=== PATIENT | male | born 1990 | race Caucasian/White ===

== ENCOUNTER 2024-08-13 18:43 | Inpatient (IN) | payer OTHER ==
[2024-08-13 19:58] LABS: Basophils # (A) 0.03 10*3/uL (0.00-0.10); Basophils % (A) 0.2 %; Eosinophils # (A) 0.46 10*3/uL (0.04-0.35); Eosinophils % (A) 3.8 %; HCT 46.5 % (39.6-50.0); HGB 15.2 g/dL (13.0-17.0); Lymphocytes # (A) 2.33 10*3/uL (0.90-5.00); Lymphocytes % (A) 19.3 %; MCH 27.9 pg (27.0-32.0); MCHC 32.7 g/dL (32.0-37.0); MCV 85.3 fL (80.0-97.0); Monocytes # (A) 0.65 10*3/uL (0.20-1.00); Monocytes % (A) 5.4 %; Neutrophils # (A) 8.55 10*3/uL (1.80-7.70); Neutrophils % (A) 70.9 %; Platelet Count 305 10*3/uL (140-440); RBC 5.45 10*6/uL (4.40-5.60); RDW 13.8 % (11.5-14.5); WBC 12.07 10*3/uL (4.50-10.00)
--- NOTE | 2024-08-13 20:05 | ED ---
General Adult HPI - General Chief complaint: Abdominal Pain Stated complaint: abd pain NVD Time Seen by Provider: 08/13/24 18:52 Source: patient, EMS, RN notes reviewed Mode of arrival: EMS Limitations: no limitations - History of Present Illness Initial comments: 34-year-old male presents to the emergency department for evaluation of left- sided abdominal pain. He notes that this started 3 days ago. Patient reports that the pain is sharp stabbing pains. He does note that he is dealing with some constipation but was recently given a laxative medication and had a bowel movement following this. He does report increased flatulence. Denies any prior abdominal surgeries. - Related Data Allergies Allergy/AdvReac Type Severity Reaction Status Date / Time No Known Allergies Allergy Verified 08/13/24 18:59 Review of Systems ROS Statement: Those systems with pertinent positive or pertinent negative responses have been documented in the HPI. ROS Other: All systems not noted in ROS Statement are negative. Past Medical History Past Medical History: Asthma, Diabetes Mellitus Additional Past Medical History / Comment(s): thyroid disease Past Surgical History: No Surgical Hx Reported Smoking Status: Current every day smoker Past Alcohol Use History: None Reported Past Drug Use History: Cocaine, Methamphetamine General Exam Limitations: no limitations General appearance: alert, in no apparent distress Head exam: Present: atraumatic, normocephalic, normal inspection Eye exam: Present: normal appearance, PERRL, EOMI. Absent: scleral icterus, conjunctival injection, periorbital swelling Course Vital Signs 08/13/24 08/13/24 18:51 22:44 Temperature 98.3 F 98.7 F Pulse Rate 71 69 Respiratory 22 18 Rate Blood Pressure 123/90 106/55 O2 Sat by Pulse 98 96 Oximetry Medical Decision Making - Medical Decision Making Was pt. sent in by a medical professional or institution (, PA, HEALTH SAFETY AND ENVIRONMENT MANAGER, urgent care, hospital, or prison...) When possible be specific @ -[No] Did you speak to anyone other than the patient for history (EMS, parent, family, police, friend...)? What history was obtained from this source @ -[No] Did you review nursing and triage notes (agree or disagree)? Why? @ -[I reviewed and agree with nursing and triage notes] Were old charts reviewed (outside hosp., previous admission, EMS record, old EKG, old radiological studies, urgent care reports/EKG's, prison records)? Report findings @ -[No old charts were reviewed] Differential Diagnosis (chest pain, altered mental status, abdominal pain women, abdominal pain men, vaginal bleeding, weakness, fever, dyspnea, syncope, headache, dizziness, GI bleed, back pain, seizure, CVA, palpatations, mental health, musculoskeletal)? @ -Differential Abdominal Pain Men: Appendicitis, cholecystitis, diverticulosis, ischemic bowel, pancreatitis, hepat itis, UTI, gastroenteritis, AAA, incarcerated hernia, bowel obstruction, constipation, inflammatory bowel, hepatitis, peptic ulcer disease, splenic infarction, perforated viscus, testicular torsion, this is not meant to be an all-inclusive list EKG interpreted by me (3pts min.). @ -None X-rays interpreted by me (1pt min.). @ -[None done] CT interpreted by me (1pt min.). @CT of the abdomen pelvis revealed fluid-filled bowel loops consistent with ileus U/S interpreted by me (1pt. min.). @ -[None done] What testing was considered but not performed or refused? (CT, X-rays, U/S, labs)? Why? @ -[None] What meds were considered but not given or refused? Why? @ -[None] Did you discuss the management of the patient with other professionals (professionals i.e. , PA, HEALTH SAFETY AND ENVIRONMENT MANAGER, lab, RT, psych nurse, manager social, brass pourer, teacher, philanthropy officer, showcase maker)? Give summary @ -Management discussed with Rosey Johnson with [facility] was accepting of the admission Was smoking cessation discussed for >3mins.? @ -[No] Was critical care preformed (if so, how long)? @ -[No] Were there social determinants of health that impacted care today? How? (Homelessness, low income, unemployed, alcoholism, drug addiction, transportation, low edu. Level, literacy, decrease access to med. care, prison, rehab)? @ -[No] Was there de-escalation of care discussed even if they declined (Discuss DNR or withdrawal of care, Hospice)? DNR status @ -[No] What co-morbidities impacted this encounter? (DM, HTN, Smoking, COPD, CAD, Cancer, CVA, ARF, Chemo, Hep., AIDS, mental health diagnosis, sleep apnea, morbid obesity)? @ -[None] Was patient admitted / discharged? Hospital course, mention meds given and route, prescriptions, significant lab abnormalities, going to OR and other pertinent info. @ -Admitted Undiagnosed new problem with uncertain prognosis? @ -[No] Drug Therapy requiring intensive monitoring for toxicity (Heparin, Nitro, Insulin, Cardizem)? @ -[No] Were any procedures done? @ -[No] Diagnosis/symptom? @ -[default] Acute, or Chronic, or Acute on Chronic? @ -[default] Uncomplicated (without systemic symptoms) or Complicated (systemic symptoms)? @ -[default] Side effects of treatment? @ -[No] Exacerbation, Progression, or Severe Exacerbation? @ -[No] Poses a threat to life or bodily function? How? (Chest pain, [place], [place], pneumonia, PE, COPD, DKA, ARF, appy, cholecystitis, CVA, Diverticulitis, Homicidal, Suicidal, threat to staff... and all critical care pts) @ -[No] - Lab Data Result diagrams: 08/13/24 19:47 08/13/24 19:47 Lab Results 08/13/24 08/13/24 08/13/24 Range/Units 19:47 19:47 20:54 WBC 12.07 H (4.50-10.00) 10*3/uL RBC 5.45 (4.40-5.60) 10*6/uL Hgb 15.2 (13.0-17.0) g/dL Hct 46.5 (39.6-50.0) % MCV 85.3 (80.0-97.0) fL MCH 27.9 (27.0-32.0) pg MCHC 32.7 (32.0-37.0) g/dL Plt Count 305 (140-440) 10*3/uL MPV 9.0 L (9.5-12.2) fL Immature Gran % (Auto) 0.4 % Neutrophils % 70.9 % Lymphocytes % 19.3 % Monocytes % 5.4 % Eosinophils % 3.8 % Basophils % 0.2 % Immature Gran # 0.05 H (0.00-0.04) 10*3/uL Neutrophils # 8.55 H (1.80-7.70) 10*3/uL Lymphocytes # 2.33 (0.90-5.00) 10*3/uL Monocytes # 0.65 (0.20-1.00) 10*3/uL Eosinophils # 0.46 H (0.04-0.35) 10*3/uL Basophils # 0.03 (0.00-0.10) 10*3/uL Sodium 136 L (137-145) mmol/L Potassium 4.7 (3.5-5.1) mmol/L Chloride 99 (98-107) mmol/L Carbon Dioxide 28 (22-30) mmol/L Anion Gap 9 mmol/L BUN 15 (9-20) mg/dL Creatinine 0.98 (0.66-1.25) mg/dL Est GFR (CKD-EPI)AfAm >90 (>60 ml/min/1.73 sqM) Est GFR (CKD-EPI)NonAf >90 (>60 ml/min/1.73 sqM) Glucose 97 (74-99) mg/dL Calcium 9.5 (8.4-10.2) mg/dL Total Bilirubin 0.6 (0.2-1.3) mg/dL AST 32 (17-59) U/L ALT 29 (4-49) U/L Alkaline Phosphatase 87 (38-126) U/L Total Protein 6.9 (6.3-8.2) g/dL Albumin 4.0 (3.5-5.0) g/dL Amylase 42 (30-110) U/L Lipase 56 (23-300) U/L Urine Color Yellow Urine Appearance Clear (Clear) Urine pH 6.5 (5.0-8.0) Ur Specific Jordan 1.028 (1.001-1.035) Urine Protein Trace H (Negative) Urine Glucose (UA) Negative (Negative) Urine Ketones Negative (Negative) Urine Blood Negative (Negative) Urine Nitrite Negative (Negative) Urine Bilirubin Negative (Negative) Urine Urobilinogen 2.0 (<2.0) mg/dL Ur Leukocyte Esterase Negative (Negative) Disposition Clinical Impression: Ileus Disposition: ADMITTED IP TO THIS [facility] Condition: Stable Is patient prescribed a controlled substance at d/c from ED?: No Referrals: Nonstaff,Physician [Primary Care Provider] - 1-2 days
[2024-08-13 20:32] LABS: ALT 29 U/L (4-49); African American GFR (CKD) >90 (>60 ml/min/1.73 sqM); Amylase 42 U/L (30-110); Anion Gap 9 mmol/L; Blood Urea Nitrogen 15 mg/dL (9-20); Calcium 9.5 mg/dL (8.4-10.2); Carbon Dioxide 28 mmol/L (22-30); Chloride 99 mmol/L (98-107); Glucose 97 mg/dL (74-99); Lipase 56 U/L (23-300); Non-African American GFR(CKD) >90 (>60 ml/min/1.73 sqM); Sodium 136 mmol/L (137-145); Total Bilirubin 0.6 mg/dL (0.2-1.3); Total Protein 6.9 g/dL (6.3-8.2)
[2024-08-13 20:47] LABS: AST 32 U/L (17-59); Alkaline Phosphatase 87 U/L (38-126); Potassium 4.7 mmol/L (3.5-5.1)
[2024-08-13 21:10] LABS: Appearance,Urine Clear (Clear); Bilirubin,Urine Negative (Negative); Blood,Urine Negative (Negative); Color,Urine Yellow; Glucose,Urine (UA) Negative (Negative); Ketones,Urine Negative (Negative); Leukocyte Esterase,Urine Negative (Negative); Nitrite,Urine Negative (Negative); PH, Urine 6.5 (5.0-8.0); Protein,Urine Trace (Negative); Specific Gravity,Urine 1.028 (1.001-1.035)
--- NOTE | 2024-08-13 21:46 | CT ---
EXAMINATION TYPE: CT abdomen pelvis w con DATE OF EXAM: 08/13/2024 9:25 PM COMPARISON: None. CLINICAL INDICATION: Male, 34 years old with history of abd pain, abdominal pain, vomiting and crampi ng. started 3 days ago. From [facility] for cocaine/meth. Sober for 12 days. TECHNIQUE: Axial images were obtained from above the diaphragm to the pubic rami in the axial plane a t 5 mm thick sections. Reconstructed images are reviewed on the computer in the coronal plane. CONTRAST: 100ml mL of Isovue 300. Study performed without Oral Contrast DLP: 4179.9 mGycm, Automated exposure control for dose reduction was used. FINDINGS: Limited CT sections are obtained the lung bases. The lung bases are clear. CT ABDOMEN: Liver: Normal Spleen: Normal Pancreas: Normal Adrenal glands: The adrenal glands are normal. Gallbladder: Normal Kidneys: No masses are evident. No hydronephrosis is present. No cysts are present. No renal stone s are evident. Aorta: Normal Inferior vena cava: Normal. CT PELVIS: Small bowel loops are prominent with fluid. A few small amounts of intraluminal air are present. And abrupt zone of transition is not identified. The small bowel appears to taper to normal caliber ileum . Note is made of multiple rounded densities within the mid abdomen may be some small lymph nodes. Sc attered small periaortic and retrocaval adenopathy is evident. Appendix: Normal as visualized. Urinary bladder: Decompressed limiting evaluation Genitourinary structures: The prostate appears normal Osseous structures: No suspicious lytic or sclerotic lesions. IMPRESSION: 1. Prominent small bowel loops containing fluid through the jejunum. Correlate for ileus. Follow-up can be performed. 2. There are scattered mesenteric lymph nodes present similar to borderline enlarged. [facility], , 08/13/2024 9:44 PM
[2024-08-13] MEDS ORDERED: NALOXONE 0.4 MG/ML 1 ML VIAL IV PRN (22:51)
[2024-08-13] MEDS: METOCLOPRAMIDE 5 MG/ML 2 ML VIAL IVP STA (23:34)
[2024-08-14] MEDS: SODIUM CHLORIDE 0.9% 1,000 ML IV SCH (00:34)
[2024-08-14] MEDS ORDERED: traZODone HCL 50 MG TAB PO PRN (10:14)
[2024-08-14] MEDS ORDERED: ALBUTEROL NEBULIZED 2.5 MG/3 ML INHALATION PRN (10:16)
[2024-08-14] MEDS: LEVOTHYROXINE 112 MCG TAB PO SCH (10:37)
[2024-08-14] MEDS: DOCUSATE 100 MG CAP PO SCH (10:37)
[2024-08-14] MEDS: METOCLOPRAMIDE 5 MG/ML 2 ML VIAL IVP SCH (12:00)
--- NOTE | 2024-08-14 12:10 | P.GSCN ---
History of Present Illness Consult date: 08/15/24 History of present illness: CHIEF COMPLAINT: Abdominal pain HISTORY OF PRESENT ILLNESS: This is a 34-year-old male who presented with left sided abdominal pain for the past 4 days. Patient reports he has been having vomiting. He did take a stool softener at home to soften his stools. He has been having flatus. He reports a large bowel movement yesterday. He has never had a colonoscopy. CT scan abdomen and pelvis had reported prominent small bowel loops with fluid through the jejunum and to correlate for ileus. Patient denies any prior abdominal surgeries. He does have a history of diabetes. PAST MEDICAL HISTORY: See below PAST SURGICAL HISTORY: See below MEDICATIONS: See below ALLERGIES: See below SOCIAL HISTORY: No illicit drug use. REVIEW OF SYSTEMS: CONSTITUTIONAL: Denies fever or chills. HEENT: Denies blurred vision, vision changes, or eye pain. Denies hemoptysis CARDIOVASCULAR: Denies chest pain or pressure. RESPIRATORY: No shortness of breath. GASTROINTESTINAL: See HPI for pertinent findings HEMATOLOGIC: Denies bleeding disorders. GENITOURINARY: Denies any blood in urine or increased urinary frequency. SKIN: Denies pruitis. Denies rash. PHYSICAL EXAM: VITAL SIGNS: Reviewed GENERAL: Well-developed in no acute distress. HEENT: No sclera icterus. Extraocular movements grossly intact. Moist buccal mucosa. Head is atraumatic, normocephalic. No nasal drainage. ABDOMEN: Soft. Obese. Nondistended. Mild tenderness palpation left mid abdomen NEUROLOGIC: Alert and oriented. Cranial nerves II through XII grossly intact. LABORATORY DATA: WBC 12.07 Hgb 15.2 platelets 305 Sodium is 136 potassium is 4.7 creatinine 0.98 LFTs normal Urinalysis no evidence of infection IMAGING: CT scan abdomen pelvis reports prominent small bowel loops containing fluid through the jejunum. Correlate for ileus. There are scattered mesenteric lymph nodes present similar to borderline enlarged. ASSESSMENT: 1. Abdominal ileus 2. Possible gastroenteritis PLAN: - Advance diet to clear liquids - Repeat abdominal x-ray today - Add Reglan - Add Colace - Encourage patient to ambulate Physician Associate [employer] note has been reviewed by physician. Signing provider agrees with the documented findings, assessment, and plan of care. Past Medical History Past Medical History: Asthma, Diabetes Mellitus Additional Past Medical History / Comment(s): thyroid disease History of Any Multi-Drug Resistant Organisms: None Reported Past Surgical History: No Surgical Hx Reported Smoking Status: Current every day smoker Past Alcohol Use History: None Reported Past Drug Use History: Cocaine, Methamphetamine Additional Drug Use History / Comment(s): At [place] currently, clean 12 days Medications and Allergies Home Medications Medication Instructions Recorded Confirmed Type Acetaminophen [Acetaminophen ER] 650 mg PO TID PRN 08/14/24 08/14/24 History Albuterol Sulfate [Ventolin HFA] 1 - 2 puff INHALATION RT-QID PRN 08/14/24 08/14/24 History Calcium Phos/D3/Magnesium/Zinc 1 tab PO TID PRN 08/14/24 08/14/24 History [Obfitwy-Dci-Mhgo-Vitamin D3] Docusate [Colace] 100 mg PO BID PRN 08/14/24 08/14/24 History FLUoxetine HCL [PROzac] 10 mg PO DAILY 08/14/24 08/14/24 History Famotidine [Pepcid] 20 mg PO DAILY 08/14/24 08/14/24 History Hyoscyamine Sulfate [Levsin] 0.125 mg PO QID PRN 08/14/24 08/14/24 History Ibuprofen [Motrin] 800 mg PO TID PRN 08/14/24 08/14/24 History Levothyroxine Sodium [Synthroid] 112 mcg PO DAILY 08/14/24 08/14/24 History Mag Hydrox/Aluminum Hyd/Simeth 30 ml PO Q4H PRN 08/14/24 08/14/24 History [Mylanta Maximum Strength Liq] Magnesium Hydroxide [Milk of 2,400 mg PO BID PRN 08/14/24 08/14/24 History Magnesia] Melatonin 10 mg PO HS PRN 08/14/24 08/14/24 History Multivitamins, Thera [Multivitamin 1 tab PO DAILY 08/14/24 08/14/24 History (formulary)] Thiamine [Vitamin B-1] 100 mg PO DAILY 08/14/24 08/14/24 History buPROPion HCL [Wellbutrin XL] 150 mg PO DAILY 08/14/24 08/14/24 History metFORMIN HCL [Glucophage] 1,000 mg PO BID 08/14/24 08/14/24 History ondansetron HCL [Zofran] 8 mg PO Q6H PRN 08/14/24 08/14/24 History traZODone HCL [Desyrel] 50 - 150 mg PO HS PRN 08/14/24 08/14/24 History Allergies Allergy/AdvReac Type Severity Reaction Status Date / Time No Known Allergies Allergy Verified 08/14/24 07:29 Surgical - Exam Vital Signs Temp Pulse Resp BP Pulse Ox 98.3 F 71 22 123/90 98 08/13/24 18:51 08/13/24 18:51 08/13/24 18:51 08/13/24 18:51 08/13/24 18:51 Results - Labs 08/13/24 19:47 08/13/24 19:47 Abnormal Lab Results - Last 24 Hours (Table) 08/13/24 08/13/24 08/13/24 Range/Units 19:47 19:47 20:54 WBC 12.07 H (4.50-10.00) 10*3/uL MPV 9.0 L (9.5-12.2) fL Immature Gran # 0.05 H (0.00-0.04) 10*3/uL Neutrophils # 8.55 H (1.80-7.70) 10*3/uL Eosinophils # 0.46 H (0.04-0.35) 10*3/uL Sodium 136 L (137-145) mmol/L Urine Protein Trace H (Negative) Diabetes panel 08/13/24 Range/Units 19:47 Sodium 136 L (137-145) mmol/L Potassium 4.7 (3.5-5.1) mmol/L Chloride 99 (98-107) mmol/L Carbon Dioxide 28 (22-30) mmol/L BUN 15 (9-20) mg/dL Creatinine 0.98 (0.66-1.25) mg/dL Glucose 97 (74-99) mg/dL Calcium 9.5 (8.4-10.2) mg/dL AST 32 (17-59) U/L ALT 29 (4-49) U/L Alkaline Phosphatase 87 (38-126) U/L Total Protein 6.9 (6.3-8.2) g/dL Albumin 4.0 (3.5-5.0) g/dL Calcium panel 08/13/24 Range/Units 19:47 Calcium 9.5 (8.4-10.2) mg/dL Albumin 4.0 (3.5-5.0) g/dL Pituitary panel 08/13/24 Range/Units 19:47 Sodium 136 L (137-145) mmol/L Potassium 4.7 (3.5-5.1) mmol/L Chloride 99 (98-107) mmol/L Carbon Dioxide 28 (22-30) mmol/L BUN 15 (9-20) mg/dL Creatinine 0.98 (0.66-1.25) mg/dL Glucose 97 (74-99) mg/dL Calcium 9.5 (8.4-10.2) mg/dL Adrenal panel 08/13/24 Range/Units 19:47 Sodium 136 L (137-145) mmol/L Potassium 4.7 (3.5-5.1) mmol/L Chloride 99 (98-107) mmol/L Carbon Dioxide 28 (22-30) mmol/L BUN 15 (9-20) mg/dL Creatinine 0.98 (0.66-1.25) mg/dL Glucose 97 (74-99) mg/dL Calcium 9.5 (8.4-10.2) mg/dL Total Bilirubin 0.6 (0.2-1.3) mg/dL AST 32 (17-59) U/L ALT 29 (4-49) U/L Alkaline Phosphatase 87 (38-126) U/L Total Protein 6.9 (6.3-8.2) g/dL Albumin 4.0 (3.5-5.0) g/dL
--- NOTE | 2024-08-14 12:51 | XR ---
EXAMINATION TYPE: XR abdomen 2V DATE OF EXAM: 08/14/2024 12:40 PM COMPARISON: None CLINICAL INDICATION: Male, 34 years old with history of ileus, abdominal pain; [facility] TECHNIQUE: Two views of the abdomen were obtained. FINDINGS: Patient large body habitus limits the evaluation. A couple mildly dilated small bowel loops in the left side of the abdomen measuring up to 4.6 cm. There seems to be some fold thickening on th e supine image. Moderate stool throughout. IMPRESSION: 1. Some dilated small bowel loops in the left side of the abdomen measuring up to 4.6 cm. Given the s uggestion of fold thickening, consider enteritis rather than ileus. 2. Moderate stool burden. [facility], , 08/14/2024 12:49 PM
[2024-08-14] MEDS: LACTULOSE 20 GM/30 ML CUP PO ONE (13:58)
[2024-08-14] MEDS: buPROPion XL 150 MG TAB.ER.24H PO SCH (14:35)
[2024-08-14] MEDS: FLUoxetine HCL 10 MG CAP PO SCH (14:35)
[2024-08-14] MEDS: HEPARIN SODIUM,PORCINE 5,000 UNIT/ML 1 ML VIAL SQ SCH (15:44)
[2024-08-14] MEDS: bisacodyL 10 MG SUPP RECTAL STA (15:44)
[2024-08-14] MEDS: KETOROLAC 15 MG/ML 1 ML VIAL IVP PRN (17:52)
[2024-08-14] MEDS ORDERED: DEXTROSE 50% SYRINGE 50 ML IVP PRN ×2 (18:12)
--- NOTE | 2024-08-14 18:24 | P.HPIM ---
History of Present Illness H&P Date: 08/14/24 Chief Complaint: Abdominal pain Patient is a 34-year-old male with known history of asthma, diabetes type 2 [id number], methamphetamine and cocaine crack use who was recently at [facility] and currently evidently everyday smoker. Patient presents to ER with a complaints of left lower quadrant abdominal pain for the past 3 days. Sharp stabbing pain. Denied any recent diarrhea. Patient states that he is dealing with constipation and was recently given laxatives. Was able to pass flatus. No prior abdominal surgeries. No fever no chills patient does have nausea. Notedof vomiting. Denied any other recent illnesses. CT of the abdomen pelvis showed showed prominent small bowel loops containing fluid throughout the jejunum. Correlate for ileus. There are scattered mesenteric lymph nodes present similar to borderline. Laboratory data showed WBC 12.07 hemoglobin 15.2 and platelets 305 Sodium 136 potassium 4.7 chloride 99 BUN 15 and creatinine 0.98 and blood sugar 97 magnesium 2.1 liver enzymes not elevated lipase 56 urinalysis is negative for infection. Review of Systems Constitutional: Patient denies any fever or chills . No generalized weakness or weight loss. Abdomen: Patient does complain of abdominal pain. Nausea and no excessive vomiting. No diarrhea. Cardiovascular: Patient denies any chest pain or short of breath no palpitations. Respiratory: patient denied any cough or sputum production. No shortness of breath Neurologic: Patient denied any numbness or tingling. no headache. Musculoskeletal: Patient denies any complaints of joint swelling or deformity. Skin: Negative Psychiatric: Negative Endocrine: No heat or cold intolerance. No recent weight gain. Genitourinary: No dysuria or hematuria. All other 14 point ROS negative except the above Past Medical History Past Medical History: Asthma, Diabetes Mellitus Additional Past Medical History / Comment(s): thyroid disease History of Any Multi-Drug Resistant Organisms: None Reported Past Surgical History: No Surgical Hx Reported Smoking Status: Current every day smoker Past Alcohol Use History: None Reported Past Drug Use History: Cocaine, Methamphetamine Additional Drug Use History / Comment(s): At [place] currently, clean 12 days Medications and Allergies Home Medications Medication Instructions Recorded Confirmed Type Acetaminophen [Acetaminophen ER] 650 mg PO TID PRN 08/14/24 08/14/24 History Albuterol Sulfate [Ventolin HFA] 1 - 2 puff INHALATION RT-QID PRN 08/14/24 08/14/24 History Calcium Phos/D3/Magnesium/Zinc 1 tab PO TID PRN 08/14/24 08/14/24 History [Jrcnvzs-Ewe-Cxlt-Vitamin D3] Docusate [Colace] 100 mg PO BID PRN 08/14/24 08/14/24 History FLUoxetine HCL [PROzac] 10 mg PO DAILY 08/14/24 08/14/24 History Famotidine [Pepcid] 20 mg PO DAILY 08/14/24 08/14/24 History Hyoscyamine Sulfate [Levsin] 0.125 mg PO QID PRN 08/14/24 08/14/24 History Ibuprofen [Motrin] 800 mg PO TID PRN 08/14/24 08/14/24 History Levothyroxine Sodium [Synthroid] 112 mcg PO DAILY 08/14/24 08/14/24 History Mag Hydrox/Aluminum Hyd/Simeth 30 ml PO Q4H PRN 08/14/24 08/14/24 History [Mylanta Maximum Strength Liq] Magnesium Hydroxide [Milk of 2,400 mg PO BID PRN 08/14/24 08/14/24 History Magnesia] Melatonin 10 mg PO HS PRN 08/14/24 08/14/24 History Multivitamins, Thera [Multivitamin 1 tab PO DAILY 08/14/24 08/14/24 History (formulary)] Thiamine [Vitamin B-1] 100 mg PO DAILY 08/14/24 08/14/24 History buPROPion HCL [Wellbutrin XL] 150 mg PO DAILY 08/14/24 08/14/24 History metFORMIN HCL [Glucophage] 1,000 mg PO BID 08/14/24 08/14/24 History ondansetron HCL [Zofran] 8 mg PO Q6H PRN 08/14/24 08/14/24 History traZODone HCL [Desyrel] 50 - 150 mg PO HS PRN 08/14/24 08/14/24 History Allergies Allergy/AdvReac Type Severity Reaction Status Date / Time No Known Allergies Allergy Verified 08/14/24 07:29 Physical Exam Vitals: Vital Signs Temp Pulse Pulse Resp BP BP Pulse Ox 08/14/24 07:11 97.6 F 59 L 18 162/65 95 08/14/24 00:50 97.8 F 57 L 18 115/68 96 08/14/24 00:23 98.5 F 65 17 109/44 95 08/13/24 22:44 98.7 F 69 18 106/55 96 08/13/24 18:51 98.3 F 71 22 123/90 98 Intake and Output 08/13/24 08/14/24 08/14/24 22:59 06:59 14:59 Intake Total 600 Balance 600 Intake: Intake, IV Titration 600 Amount Sodium Chloride 0.9% 1, 600 000 ml @ 75 mls/hr IV . [id number] Rx#:[id number] Other: Weight 172.365 kg 172.365 kg PHYSICAL EXAMINATION: Patient is lying in the bed comfortably, no acute distress, awake alert and oriented. Morbidly obese.. HEENT: Normocephalic. Neck is supple. Pupils reactive. Nostrils clear. Oral cavity is moist. Neck reveals no JVD, carotid bruits, or thyromegaly. CHEST EXAMINATION: Trachea is central. Symmetrical expansion. Lung chang clear to auscultation and percussion. CARDIAC: Normal S1, S2 with no gallops. No murmurs ABDOMEN: Soft. Bowel sounds normal. No organomegaly. No abdominal bruits. Extremities: reveal no edema. Dry skin bilateral lower extremities. No clubbing or cyanosis Neurologically awake, alert, oriented x3 with well-coordinated movements. No focal deficits noted Skin: No rash or skin lesions. Psychiatric: Coperative. Nonsuicidal Musculoskeletal: No joint swelling or deformity. Normal range of motion. Results CBC & Chem 7: 08/13/24 19:47 08/13/24 19:47 Labs: Abnormal Lab Results - Last 24 Hours (Table) 08/13/24 08/13/24 08/13/24 Range/Units 19:47 19:47 20:54 WBC 12.07 H (4.50-10.00) 10*3/uL MPV 9.0 L (9.5-12.2) fL Immature Gran # 0.05 H (0.00-0.04) 10*3/uL Neutrophils # 8.55 H (1.80-7.70) 10*3/uL Eosinophils # 0.46 H (0.04-0.35) 10*3/uL Sodium 136 L (137-145) mmol/L Urine Protein Trace H (Negative) Thrombosis Risk Factor Assmnt - DVT/VTE Prophylaxis DVT/VTE Prophylaxis: Pharmacologic Prophylaxis ordered - Choose All That Apply Any of the Below Risk Factors Present?: Yes Each Factor Represents 1 point: Obesity (BMI >25) Other Risk Factors: No Other congenital or acquired thrombophilia - If yes, enter type in comment: No Thrombosis Risk Factor Assessment Total Risk Factor Score: 1 Thrombosis Risk Factor Assessment Level: Low Risk Assessment and Plan Assessment: Left lower quadrant abdominal pain due to ileus Constipation History of methamphetamine and crack cocaine use. Patient has been clean for the past 12 days, was admitted to [facility] recently. Diabetes type 2 [id number] Morbid obesity BMI 54.5 Hypothyroidism Anxiety/depression DVT prophylaxis with heparin subcu Plan: Patient will be continued on IV hydration with normal saline. Patient will be kept nothing by mouth until pain improves. Will start on liquid diet since patient is able to pass flatus. General surgery is on board. Patient was started back on home medications including bupropion and Prozac. Insulin sliding scale and follow-up A1c level. Continue with levothyroxine. Follow-up closely. Time with Patient: Greater than 30
[2024-08-14 20:31] LABS: Glucose,Whole Blood 102 mg/dL (70-110)
[2024-08-14] MEDS: INSULIN LISPRO (HumaLOG) 100 UNIT/ML 10 mL VL SQ SCH (20:38)
[2024-08-15] MEDS: IBUPROFEN 800 MG TAB PO PRN (05:53)
[2024-08-15 07:05] LABS: Glucose,Whole Blood 83 mg/dL (70-110)
[2024-08-15 08:53] LABS: Blood Urea Nitrogen 6.8 mg/dL (9.0-27.0); Calcium 8.5 mg/dL (8.7-10.3); Carbon Dioxide 23.9 mmol/L (21.6-31.8); Chloride 106 mmol/L (96-109); Glucose 78 mg/dL (70-110); Potassium 4.5 mmol/L (3.5-5.5); Sodium 138 mmol/L (135-145)
[2024-08-15 09:00] LABS: Basophils # (A) 0.02 X 10*3/uL (0.00-0.10); Basophils % (A) 0.2 %; Eosinophils # (A) 0.34 X 10*3/uL (0.04-0.35); Eosinophils % (A) 3.8 %; HCT 43.5 % (39.6-50.0); HGB 13.7 g/dL (13.0-17.0); Lymphocytes # (A) 2.36 X 10*3/uL (0.90-5.00); Lymphocytes % (A) 26.1 %; MCH 27.2 pg (27.0-32.0); MCHC 31.5 g/dL (32.0-37.0); MCV 86.5 FL (80.0-97.0); Mean Platelet Volume 9.7 FL (9.5-12.2); Monocytes # (A) 0.53 X 10*3/uL (0.20-1.00); Monocytes % (A) 5.9 %; NRBC Per 100 WBC 0 X 10*3/uL (0.00-0.01); Neutrophils # (A) 5.74 X 10*3/uL (1.80-7.70); Neutrophils % (A) 63.6 %; Platelet Count 268 X 10*3/uL (140-440); RBC 5.03 X 10*6/uL (4.40-5.60); RDW 13.9 % (11.5-14.5); WBC 9.03 X 10*3/uL (4.50-10.00)
[2024-08-15] MEDS: AMOXIC-POT CLAV 875-125MG 1 EACH TAB PO SCH (10:10)
[2024-08-15] MEDS: THIAMINE 100 MG TAB PO SCH (11:04)
[2024-08-15 12:09] LABS: Glucose,Whole Blood 87 mg/dL (70-110)
[2024-08-15 13:12] VITALS: BP 143/86; PULSE 69; RESP 18; TEMP 98
--- NOTE | 2024-08-15 15:08 | P.PN ---
Subjective Progress Note Date: 08/15/24 SURGICAL PROGRESS NOTE CHIEF COMPLAINT: Abdominal pain HISTORY OF PRESENT ILLNESS: Patient's abdominal pain has resolved. He is tolerating the clear liquid diet. He is having bowel movements. He is req uesting advancement of diet. Abdominal x-ray reports some dilated small bowel loops in the left side of the abdomen measuring up to 4.6 cm. Given the suggestion of full thickening consider enteritis rather than ileus. Moderate stool burden. Afebrile. WBC normalized from 12-9.03 PHYSICAL EXAM: VITAL SIGNS: Reviewed. GENERAL: Well-developed in no acute distress. ABDOMEN: Soft. Nondistended. Nontender. Obese NEUROLOGIC: Alert and oriented. Cranial nerves II through XII grossly intact. ASSESSMENT: 1. Possible gastroenteritis 2. Constipation 3. Possible ileus PLAN: - Advance diet to regular. Patient can be discharged today if tolerating regular diet. Physician Repair Specialist note has been reviewed by physician. Signing provider agrees with the documented findings, assessment, and plan of care. Objective - Vital Signs Vital signs: Vital Signs Temp 98.0 F 08/15/24 13:07 Pulse 69 08/15/24 13:07 Resp 18 08/15/24 13:07 BP 143/86 08/15/24 13:07 Pulse Ox 97 08/15/24 13:07 FiO2 Intake & Output 08/14/24 08/15/24 08/15/24 18:59 06:59 18:59 Intake Total 1979 2095 2201 Balance 1979 2095 2201 Intake: Intake, IV Titration 900 900 Amount Sodium Chloride 0.9% 1, 900 900 000 ml @ 75 mls/hr IV . [id number] [facility] Rx#:[id number] Oral 1080 6 2202 Other: # Voids 4 1 # Bowel Movements 1 - Labs CBC & Chem 7: 08/15/24 04:32 08/15/24 04:32 Labs: Abnormal Lab Results - Last 24 Hours (Table) 08/15/24 08/15/24 Range/Units 04:32 04:32 MCHC 31.5 L (32.0-37.0) g/dL BUN 6.8 L (9.0-27.0) mg/dL BUN/Creatinine Ratio 8.50 L (12.00-20.00) Ratio Calcium 8.5 L (8.7-10.3) mg/dL TSH 11.600 H (0.350-5.500) UIU/ML
== END 2024-08-15 14:53 | DRG 247 ==
LOC: EC 18:43 → 5NMEDONC 23:51 → OBSVTOIN 23:52 → 5NMEDONC 08-14 00:11
PROVIDERS: ADMIT Hospitalist; ATTEND Hospitalist
DX: K56.7 Ileus, unspecified (principal); F17.200 Nicotine dependence, unspecified, uncomplicated; E11.9 Type 2 diabetes mellitus without complications; F14.90 Cocaine use, unspecified, uncomplicated; E66.01 Morbid (severe) obesity due to excess calories; E03.9 Hypothyroidism, unspecified; F32.A Depression, unspecified; F41.9 Anxiety disorder, unspecified; K52.9 Noninfective gastroenteritis and colitis, unspecified; Z79.84 Long term (current) use of oral hypoglycemic drugs; Z79.890 Hormone replacement therapy; Z68.43 Body mass index [BMI] 50.0-59.9, adult; Z79.899 Other long term (current) drug therapy
CPT/HCPCS: 36415; 74019; 74177; 80048; 80053; 81003; 82150; 83036; 83690; 83735; 84439; 84443; 85025; 96374; 96375; 99285